=== PATIENT | female | born 2000 | race Caucasian/White ===

== ENCOUNTER 2022-01-29 09:35 | Emergency (ER) | payer MEDICAID, SELFPAY ==
--- NOTE | 2022-01-29 09:38 | ED_ITS ---
HPI - Seizure General: Chief Complaint: Seizure Stated Complaint: SEIZURE Time Seen by Provider: 01/29/22 09:38 History of Present Illness: HPI Narrative: 21-year-old presents with a seizure. She has a history of seizures. She is visiting her grandmother in town and was witnessed to have a seizure in the parking lot at the hotel where they were staying. Denies any focal pain. Specifically denies headache or neck pain. Denies any focal weakness numbness or tingling. States she has been compliant with seizure medications. Does note some abrasions to hand and foot however states tetanus is up-to-date. Denies any pain in those areas. Review of Systems Narrative: - CONSTITUTIONAL: Denies weight loss, fever and chills. - HEENT: Denies changes in vision and hearing. - RESPIRATORY: Denies SOB and cough. - CV: Denies palpitations and CP. - GI: Denies abdominal pain, nausea, vomiting and diarrhea. - : Denies dysuria and urinary frequency. - MSK: Denies myalgia and joint pain. - SKIN: Denies rash and pruritus. - NEUROLOGICAL: As above - PSYCHIATRIC: Denies suicidal ideation Physical Exam Narrative: EXAM NARRATIVE: - GENERAL: Alert and oriented x 3. No acute distress. Well-nourished. - EYES: EOMI. Anicteric. - HENT: Atraumatic, no C-spine tenderness. Moist mucous membranes. No scleral icterus. No cervical lymphadenopathy. - LUNGS: Clear to auscultation bilaterally. No accessory muscle use. Equal lung sounds bilaterally. No respiratory distress. - CARDIOVASCULAR: Regular rate and rhythm. No murmur. No JVD. - ABDOMEN: Soft, non-tender and non-distended. Negative CVA tenderness bilaterally, no rebound or guarding, negative Lara sign. No palpable masses. - EXTREMITIES: No edema. Non-tender. - SKIN: No rashes or lesions. Warm. Small abrasions over left hand and left foot. No deeper tenderness. - NEUROLOGIC: No meningismus or focal neurological deficits. CN II-XII grossly intact. - PSYCHIATRIC: Cooperative. Appropriate mood and affect. Course Vital Signs: Vital signs: Vital Signs Temperature 98.3 F 01/29/22 10:20 Pulse Rate 88 01/29/22 10:38 Respiratory Rate 16 01/29/22 10:38 Blood Pressure 137/89 05/15/22 10:38 Pulse Oximetry 100 01/29/22 10:38 MDM - Seizure MDM Narrative Medical decision making narrative: 21-year-old presents after breakthrough seizure. States she has been compliant with medications. Nonfocal neurologic exam. Has minor abrasions over hand and foot. Tetanus up-to-date. No deeper tenderness or sign of fracture or dislocation. Extremities are neurovascularly intact. CT scan of the head does not reveal any intracranial hemorrhage. No C-spine tenderness. Lab work unremarkable. At this time I believe patient would be safe for discharge and outpatient follow-up. Return precautions provided. Plan was reviewed with the patient who expressed understanding. Questions answered. Patient will follow up with neurology and PCP. Patient discharged in stable condition. Lab Data Result diagrams: 01/29/22 09:50 01/29/22 09:50 Labs: Radiology Impressions Head CT 01/29/22 09:44 IMPRESSION: No acute intracranial abnormality. Laboratory Results WBC 7.6 10^3/uL (4.0-10.0) 01/29/22 09:50 RBC 4.50 10^6/uL (4.1-5.3) 01/29/22 09:50 Hgb 10.7 g/dL (11.5-15.3) L 01/29/22 09:50 Hct 35.8 % (37.0-47.0) L 01/29/22 09:50 MCV 79.6 fl (81-99) L 01/29/22 09:50 MCH 23.8 pg (28.0-34.0) L 01/29/22 09:50 MCHC 29.9 g/dL (30.0-36.0) L 01/29/22 09:50 RDW 14.5 % (12.1-15.1) 01/29/22 09:50 Plt Count 288 10^3/cmm (130-400) 01/29/22 09:50 MPV 10.4 fL (7.4-10.4) 01/29/22 09:50 Neut % (Auto) 42.7 % 01/29/22 09:50 Lymph % (Auto) 42.1 % 01/29/22 09:50 [place] % (Auto) 5.8 % 01/29/22 09:50 Eos % (Auto) 8.4 % 01/29/22 09:50 Baso % (Auto) 0.5 % 01/29/22 09:50 Neut # (Auto) 3.26 10^3/uL (1.8-7.7) 01/29/22 09:50 Lymph # (Auto) 3.2 10^3/uL (0.8-4.8) 01/29/22 09:50 [place] # (Auto) 0.4 10^3/uL (0.2-0.9) 01/29/22 09:50 Eos # (Auto) 0.6 10^3/uL (0.0-0.8) 01/29/22 09:50 Baso # (Auto) 0.0 10^3/uL (0.0-0.1) 01/29/22 09:50 Nucleated RBC % (auto) 0 % 01/29/22 09:50 Nucleated RBCs # 0.0 /100WBC 01/29/22 09:50 Sodium 136 mmol/L (136-145) 01/29/22 09:50 Potassium 4.3 mmol/L (3.5-5.1) 01/29/22 09:50 Chloride 98 mmol/L (98-107) 01/29/22 09:50 Carbon Dioxide 18 mmol/L (22-29) L 01/29/22 09:50 Anion Gap 24.3 (5-19) H 01/29/22 09:50 BUN 8 mg/dL (6-20) 01/29/22 09:50 Creatinine 0.8 mg/dL (0.5-0.9) 01/29/22 09:50 GFR Calculation 90.5 mL/min (90-130) 01/29/22 09:50 Glucose 122 mg/dL (65-115) H 01/29/22 09:50 Calculated Osmolality 282 mOsm/kg (285-295) L 01/29/22 09:50 Calcium 9.8 mg/dL (8.5-10.5) 01/29/22 09:50 Total Bilirubin 0.2 mg/dL (0.15-1.2) 01/29/22 09:50 AST 27 U/L (0-32) 01/29/22 09:50 ALT 16 U/L (0-33) 01/29/22 09:50 Alkaline Phosphatase 120 IU/L (35-105) H 01/29/22 09:50 Total Protein 7.9 g/dL (6.6-8.7) 01/29/22 09:50 Albumin 4.9 g/dL (3.5-5.2) 01/29/22 09:50 Globulin 3.0 g/dL (1.3-4.6) 01/29/22 09:50 Urine Color Straw (Yellow) 01/29/22 10:22 Urine Appearance Clear (CLEAR) 01/29/22 10:22 Urine pH 6 (5-7) 01/29/22 10:22 Ur Specific [place] 1.020 (1.005-1.030) 01/29/22 10:22 Urine Protein Trace (Negative) 01/29/22 10:22 Urine Glucose (UA) Norm (Normal) 01/29/22 10:22 Urine Ketones 1+ (Negative) H 01/29/22 10:22 Urine Blood Neg (Negative) 01/29/22 10:22 Urine Nitrate Negative (Negative) 01/29/22 10:22 Urine Bilirubin Neg (Negative) 01/29/22 10:22 Urine Urobilinogen Norm mg/dL (Negative) 01/29/22 10:22 Ur Leukocyte Esterase Negative (Negative) 01/29/22 10:22 Urine RBC None /hpf (0-2) 01/29/22 10:22 Urine WBC Rare /hpf (0-5) 01/29/22 10:22 Ur Squamous Epith Cells 0-4 /hpf (0-5) H 01/29/22 10:22 Amorphous Sediment Not Reportable 01/29/22 10:22 Urine Bacteria Trace /hpf (NONE) 01/29/22 10:22 Urine Opiates Screen Negative ng/mL (Negative) 01/29/22 10:22 Ur Barbiturates Screen Positive ng/mL (Negative) H 01/29/22 10:22 Ur Phencyclidine Scrn Negative ng/mL (Negative) 01/29/22 10:22 Ur Amphetamines Screen Negative ng/mL (Negative) 01/29/22 10:22 U Benzodiazepines Scrn Negative ng/mL (Negative) 01/29/22 10:22 Urine Cocaine Screen Negative ng/mL (Negative) 01/29/22 10:22 U Marijuana (THC) Screen Negative ng/mL (Negative) 01/29/22 10:22 EKG Data EKG 1: Other EKG comments: Normal sinus rhythm, rate of 84, incomplete right bundle branch block, no sign of acute ischemia or other acute abnormality. 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
[2022-01-29 09:41] VITALS: BP 158/103; PULSE 120; RESP 18; TEMP 36.8; O2SAT 100; BMI 26.8
--- NOTE | 2022-01-29 09:44 | ECG_ITS ---
[facility] Test Date: 2022-01-29 Pat Name: Clifton Webb Department: Room: Gender: Female [employer] Division Manager: : 2000 Requested By: Ernesto Espinoza Order Number: [id number] Nereyda MD: Marisela Marsh M.D. Measurements Intervals [place] Rate: 84 P: 20 CA: 155 QRS: 25 QRSD: 80 T: 29 QT: 338 QTc: 401 Interpretive Statements SINUS RHYTHM POSSIBLE RIGHT VENTRICULAR CONDUCTION DELAY [RSR (QR) IN V1/V2] No previous ECG available for comparison Electronically Signed On 01-29-2022 13:23:49 CDT by Marisela Marhs M.D. [email or web address])choctaw regional medical centerBeijing Exhibition Cheng Technologypaulding county hospitalMoondo/store/OM/[id number]
--- NOTE | 2022-01-29 09:44 | CTR_ITS ---
PROCEDURE INFORMATION: Exam: CT Head Without Contrast Exam date and time: 01/29/2022 9:54 AM Age: 21 years old Clinical indication: Syncope and collapse; Additional info: Seizure TECHNIQUE: Imaging protocol: Computed tomography of the head without contrast. Radiation optimization: All CT scans at this facility use at least one of these dose optimization techniques: automated exposure control; mA and/or kV adjustment per patient size (includes targeted exams where dose is matched to clinical indication); or iterative reconstruction. COMPARISON: No relevant prior studies available. RADIATION DOSE METRICS: Total DLP (mGy-cm): 819.96 FINDINGS: Brain: No acute hemorrhage identified. No large territorial areas of hypoattenuation concerning for ischemic infarct identified. No intracranial mass effect. Cerebral ventricles: The ventricles are within normal limits. Paranasal sinuses: The visualized sinuses are unremarkable. Mastoid air cells: The visualized mastoid air cells are well aerated. Bones/joints: The osseous structures are intact. Soft tissues: Unremarkable. CT/CT head wo con* [id number] IMPRESSION: No acute intracranial abnormality.
[2022-01-29 10:05] LABS: Basophils % 0.5 %; Eosinophils # 0.6 10^3/uL (0.0-0.8); Eosinophils % 8.4 %; Hematocrit 35.8 % (37.0-47.0); Hemoglobin 10.7 g/dL (11.5-15.3); Lymphocytes # 3.2 10^3/uL (0.8-4.8); Lymphocytes % 42.1 %; Mean Corpuscular HGB Conc 29.9 g/dL (30.0-36.0); Mean Corpuscular Hemoglobin 23.8 pg (28.0-34.0); Mean Corpuscular Volume 79.6 fl (81-99); Mean Platelet Volume 10.4 fL (7.4-10.4); Monocytes # 0.4 10^3/uL (0.2-0.9); Monocytes % 5.8 %; Neutrophils # 3.26 10^3/uL (1.8-7.7); Neutrophils % 42.7 %; Nucleated Red Blood Cells % 0 %; Platelet Count 288 10^3/cmm (130-400); Red Cell Distribution Width 14.5 % (12.1-15.1); White Blood Count 7.6 10^3/uL (4.0-10.0)
[2022-01-29 10:20] VITALS: BP 158/103; PULSE 120; RESP 18; TEMP 36.8; O2SAT 100
[2022-01-29 10:38] VITALS: BP 137/89; PULSE 88; RESP 16; O2SAT 100
[2022-01-29 10:38] LABS: Alanine Aminotransferase 16 U/L (0-33); Albumin Level 4.9 g/dL (3.5-5.2); Alkaline Phosphatase 120 IU/L (35-105); Anion Gap 24.3 (5-19); Aspartate Amino Transferase 27 U/L (0-32); Blood Urea Nitrogen 8 mg/dL (6-20); Calcium 9.8 mg/dL (8.5-10.5); Carbon Dioxide 18 mmol/L (22-29); Chloride 98 mmol/L (98-107); Glomerular Filtration Rate 90.5 mL/min (90-130); Glucose 122 mg/dL (65-115); Osmolality Calculated 282 mOsm/kg (285-295); Potassium 4.3 mmol/L (3.5-5.1); Sodium 136 mmol/L (136-145); Total Bilirubin 0.2 mg/dL (0.15-1.2); Total Protein 7.9 g/dL (6.6-8.7)
[2022-01-29 11:03] LABS: Urine Appearance Clear (CLEAR); Urine Color Straw (Yellow); pH Urine 6 (5-7)
[2022-01-29 11:04] LABS: Add Urine Culture? No; Bacteria Urine TRACE /hpf; Bilirubin Urine Neg (Negative); Blood Urine Neg (Negative); Glucose Urine UA Norm (Normal); Ketones Urine 1+ (Negative); Leukocyte Esterase Urine Negative (Negative); Nitrate Urine Negative (Negative); Protein Urine Trace (Negative); Squamous Epithelial Cell Urine 0-4 /hpf (0-5); Urobilinogen Urine Norm (Negative); WBC Urine RARE /hpf (0-5)
[2022-01-29 11:05] LABS: Amphetamines Screen Urine Negative (Negative); Barbiturates Screen Urine Positive (Negative); Benzodiazepines Screen Urine Negative (Negative); Cocaine Screen Urine Negative (Negative); Opiate Screen Urine Negative (Negative); PCP Screen Urine Negative (Negative); THC Screen Urine Negative (Negative)
[2022-01-29 12:17] VITALS: BP 159/99; PULSE 100; RESP 17; O2SAT 100
== END 2022-01-29 12:19 | disposition home or self-care (01) ==
PROVIDERS: Emergency Provider Emergency Medicine
DX: R56.9 Unspecified convulsions (principal)
CPT/HCPCS: 70450; 80053; 80306; 81001; 85025; 93005; 96374; 99284; J1953